=== PATIENT | female | born 1975 | race Caucasian/White ===

== ENCOUNTER 2016-11-14 20:12 | Emergency (ER) | payer OTHER ==
[~2016-11-14] VITALS: Ht 157.5 cm; Wt 71.9 kg
[2016-11-14 20:18] VITALS: TEMP 36.5; Ht 157.5 cm; Wt 71.9 kg
[2016-11-14] MEDS ORDERED: SODIUM CHLORIDE 0.9% 1000ML 1,000 ML IV ONE (21:06)
[2016-11-14] MEDS ORDERED: SODIUM CHLORIDE 0.9% 1000ML 1,000 ML IV STA (21:06)
[2016-11-14] MEDS ORDERED: OPTIRAY 320 IV PRN (21:15)
--- NOTE | 2016-11-14 21:30 | EMERGENCY ROOM VISIT NOTE ---
History Report prepared by Estephanie: Kimberlee Gerardo Under the Supervision of: Dr. Marquez La M.D. First contact with patient: 20:57 Chief Complaint: OTHER COMPLAINT Stated Complaint: HERNIA OR RIGHT SIDE HARD LUMP DIZZY AND FAINTNESS History of Present Illness The patient is a 41 year old female who presents to the Emergency Room with complaints of a persistent lump in her right groin occurring for the past 4-5 days. About a day or two prior to the onset of the lump, she had slipped and fallen down while she was lifting her bicycle. She has been having normal bowel movements. She reports a mild back pain and a headache. She also complains of dizziness starting today. She was eating at the time of the onset of her dizziness episode. The patient denies any urinary symptoms, or any other complaints. She is currently on her menstrual period and reports it is normal for her. She denies any chance of . She denies any history of abdominal surgeries or hernia. She does not have any medical problems. She does sleep outside in a tent and she does have some bug bites on her legs and a small one on her thigh. Source of History: patient Onset: 4-5 days ago Position: other (right groin) Quality: other (lump) Timing: other (persistent) Associated Symptoms: + back pain, + headache, No urinary symptoms Review of Systems See HPI for pertinent positives & negatives. A total of 10 systems reviewed and were otherwise negative. Past Medical & Surgical Medical Problems: (1) Chronic fatigue (2) Need for post exposure prophylaxis for rabies (3) Need for post exposure prophylaxis for rabies (4) Need for post exposure prophylaxis for rabies (5) Need for post exposure prophylaxis for rabies Surgical Problems: (1) [place] teeth extracted Old medical records were reviewed. Nurse's notes were reviewed and I agree with. Family History Diabetes mellitus Heart disease Hypertension Lung disease Social History Smoking Status: Never Smoker Alcohol Use: none Drug Use: none Marital Status: single Occupation Status: employed Current/Historical Medications No Active Prescriptions or Reported Meds Allergies Coded Allergies: Amoxicillin (Unverified Allergy, Unknown, UNKNOWN, 07/10/15) Sulfamethoxazole w/Trimethoprim (Unverified Allergy, Unknown, UNKNOWN, ) Uncoded Allergies: SULFITES (Allergy, Mild, trigger sleep apnea, 12/16/09) Physical Exam Vital Signs Date Time Temp Pulse Resp B/P Pulse Ox O2 Delivery O2 Flow Rate FiO2 11/15/16 00:09 75 20 127/72 98 11/14/16 22:41 83 20 132/77 98 11/14/16 22:08 101 20 138/67 98 11/14/16 20:18 36.5 106 20 144/69 98 Physical Exam General: Non-ill appearing, middle aged female, in no acute distress. HEENT: Normal cephalic atraumatic. Pupils are equal round and reactive to light. Extraocular movements are intact. Oropharynx is pink with moist mucous membranes. No swelling of the mouth lips or tongue. Neck: Supple with a midline trachea. No meningeal signs or stiffness, no JVD or bruits. No Stridor. Chest: Clear to auscultation bilaterally. No wheezes or rhonchi. No increased work of breathing. Heart: regular rate and rhythm. Abdomen: Soft nontender, nondistended without rebound guarding or rigidity. No splenomegaly or tenderness over the spleen. : Mild lymphadenopathy in right groin, no fluctuance, no hernia. Left groin has no lymphadenopathy. Extremities: No cyanosis clubbing or edema. No calf tenderness or assymetry. Right leg has no cellulitis. She has bug bite on the right thigh that is not red. Spine/Back. Non tender to palpation. No CVA tenderness Skin: Good turgor without rashes. Neurologic exam: Cranial nerves two through 12 are intact. Motor and sensation are intact and symmetrical throughout. Medical Decision & Procedures ER Provider Diagnostic Interpretation: CT results as stated below per my review and radiologist interpretation: ABDOMEN AND PELVIS CT WITH IV CONTRAST CT DOSE: 377.52 mGy.cm HISTORY: Hernia eval for hernia, right inguinal TECHNIQUE: Multiaxial CT images of the abdomen and pelvis were performed following the use of intravenous contrast. COMPARISON STUDY: None. FINDINGS: Lung bases are clear. Liver is uniform throughout. Gallbladder is negative for distention. Spleen is slightly prominent at 12 cm maximum linear dimension. The adrenal glands are normal. Kidneys enhance uniformly. There is no evidence for hydronephrosis. There is bowel pattern within the abdomen and pelvis is nonobstructive. Small bilateral ovarian follicular cysts are present. There is no significant abdominal or pelvic adenopathy. Bladder is midline. There are several right inguinal nodes measuring up to 1.8 cm. There is no evidence for pelvic or inguinal hernia. IMPRESSION: 1. Study is negative for hernia. 2. Several right inguinal nodes the largest of which measures 1.8 cm. If this does not resolve, biopsy would be indicated. 3. Mild splenomegaly. Electronically signed by: Jay Valerio M.D. 11/14/2016 10:44 PM Laboratory Results 11/14/16 21:40 Red Blood Count 4.43, Mean Corpuscular Volume 89.8, Mean Corpuscular Hemoglobin 30.0, Mean Corpuscular Hemoglobin Concent 33.4, Mean Platelet Volume 11.2, Neutrophils (%) (Auto) 66.9, Lymphocytes (%) (Auto) 23.6, Monocytes (%) (Auto) 6.8, Eosinophils (%) (Auto) 2.0, Basophils (%) (Auto) 0.5, Neutrophils # (Auto) 2.95, Lymphocytes # (Auto) 1.04, Monocytes # (Auto) 0.30, Eosinophils # (Auto) 0.09, Basophils # (Auto) 0.02 11/14/16 21:40 Test 11/14/16 21:26 11/14/16 21:40 11/14/16 21:48 Urine Color YELLOW Urine Appearance CLEAR (CLEAR) Urine pH 7.0 (4.5-7.5) Urine Specific [place] 1.017 (1.000-1.030) Urine Protein NEG (NEG) Urine Glucose (UA) NEG (NEG) Urine Ketones NEG (NEG) Urine Occult Blood 1+ (NEG) Urine Nitrite NEG (NEG) Urine Bilirubin NEG (NEG) Urine Urobilinogen NEG (NEG) Urine Leukocyte Esterase NEG (NEG) Urine WBC (Auto) 1-5 /hpf (0-5) Urine RBC (Auto) 5-10 /hpf (0-4) Urine Hyaline Casts (Auto) 0 /lpf (0-5) Urine Epithelial Cells (Auto) 10-20 /lpf (0-5) Urine Bacteria (Auto) NEG (NEG) Urine Test NEG (NEG) White Blood Count 4.41 K/uL (4.8-10.8) Red Blood Count 4.43 M/uL (4.2-5.4) Hemoglobin 13.3 g/dL (12.0-16.0) Hematocrit 39.8 % (37-47) Mean Corpuscular Volume 89.8 fL (80-100) Mean Corpuscular Hemoglobin 30.0 pg (25-34) Mean Corpuscular Hemoglobin Concent 33.4 g/dl (32-36) Platelet Count 200 K/uL (130-400) Mean Platelet Volume 11.2 fL (7.4-10.4) Neutrophils (%) (Auto) 66.9 % Lymphocytes (%) (Auto) 23.6 % Monocytes (%) (Auto) 6.8 % Eosinophils (%) (Auto) 2.0 % Basophils (%) (Auto) 0.5 % Neutrophils # (Auto) 2.95 K/uL (1.4-6.5) Lymphocytes # (Auto) 1.04 K/uL (1.2-3.4) Monocytes # (Auto) 0.30 K/uL (0.11-0.59) Eosinophils # (Auto) 0.09 K/uL (0-0.5) Basophils # (Auto) 0.02 K/uL (0-0.2) RDW Standard Deviation 41.3 fL (36.4-46.3) RDW Coefficient of Variation 12.7 % (11.5-14.5) Immature Granulocyte % (Auto) 0.2 % Immature Granulocyte # (Auto) 0.01 K/uL (0.00-0.02) Anion Gap 9.0 mmol/L (3-11) Est Creatinine Clear Calc Drug Dose 80.1 ml/min Estimated GFR () 98.0 Estimated GFR (Non- 84.5 BUN/Creatinine Ratio 13.5 (10-20) Calcium Level 8.7 mg/dl (8.5-10.1) Total Bilirubin 0.3 mg/dl (0.2-1) Direct Bilirubin mg/dl (0-0.2) Aspartate Amino Transf (AST/SGOT) 27 U/L (15-37) Alanine Aminotransferase (ALT/SGPT) 31 U/L (12-78) Alkaline Phosphatase 89 U/L (45-117) Total Protein 7.5 gm/dl (6.4-8.2) Albumin 3.9 gm/dl (3.4-5.0) Lipase 144 U/L (73-393) Chemistry Specimen Hemolysis Bedside Troponin I 0.000 ng/ml (0-0.045) Laboratory studies as stated above per my review. Medications Administered Medications (Trade) Dose Ordered Sig/Bhupinder Route Start Time Stop Time Status Last Admin Dose Admin Sodium Chloride 1,000 ml @ 999 mls/hr Q1H1M STAT IV 11/14/16 21:06 11/14/16 22:06 DC 11/14/16 22:03 999 MLS/HR Sodium Chloride (Nss 1000ml) 1,000 ml @ 200 mls/hr Q5H ONCE IV 11/14/16 21:06 11/15/16 00:32 DC 11/14/16 22:04 200 MLS/HR ED Course 2056: Past medical records reviewed. The patient was evaluated in room B11A, and a complete history and physical examination were performed. 2105: Sodium Chloride 1000 ml @ 200 mls/hr IV, Sodium Chloride 1000 ml @ 999 mls /hr IV 5: Upon reevaluation, the patient is resting comfortably. I discussed the results and treatment plan with her. She verbalized agreement of the treatment plan. The patient was discharged home. Medical Decision Differential diagnosis includes but is not limited to lymphadenopathy, hernia, infection, malignancy. This patient comes in as described above. She was placed in room B 11. She is here for treatment and evaluation of pain in her right groin with a mass. On exam, she has what appears to be lymphadenopathy but hernia could still be in the differential. It is not red or warm she does have a small bite on her leg but no cellulitis or obvious infection. She's had no systemic complaints. She does not have any lymph nodes in her left groin or her axilla. She has no tenderness over spleen or splenomegaly on exam. Blood work was obtained and was unremarkable. She has no acute electrolyte or metabolic abnormalities. She is not . I did a CAT scan and there is lymphadenopathy no evidence of hernia. Most likely this is reactive. I did talk at length and stressed importance of close follow-up as if this persists she may ultimately need biopsy to rule out malignancy. [facility] and she was given a follow-up within the next week. also I had our case management team got involved and talked to the patient and they will also contact her as well to make sure she does have follow-up. She is encouraged to return to ER fever or chills, worsening symptoms, increasing pain or problems, any new problems or concerns. Impression Primary Impression: Inguinal lymphadenopathy Additional Impression: Right groin pain Scribe Attestation The scribe's documentation has been prepared under my direction and personally reviewed by me in its entirety. I confirm that the note above accurately reflects all work, treatment, procedures, and medical decision making performed by me. Departure Information Dispostion Home / Self-Care Prescriptions No Active Prescriptions or Reported Meds Referrals No Doctor, Assigned (PCP) Forms HOME CARE DOCUMENTATION FORM, IMPORTANT VISIT INFORMATION, WORK / SCHOOL INSTRUCTIONS Patient Instructions A Signature Page, My [facility] Additional Instructions Rest. Drink plenty of fluids. Return if: Increasing pain, redness or warmth, fever or chills, any new problems or concerns. [facility]up with [facility] in 1-2 weeks to get this rechecked. You may ultimately need a biopsy if the symptoms persist or worsen
[2016-11-14 21:55] LABS: BASO % 0.5 %; BASO ABS # 0.02 K/uL (0-0.2); COMPLETE YES; HEMATOCRIT 39.8 % (37-47); IG% 0.2 %; LYMPH % 23.6 %; LYMPH ABS # 1.04 K/uL (1.2-3.4); MEAN CELL VOLUME 89.8 fL (80-100); MEAN CORPUSCULAR HGB CONC 33.4 g/dl (32-36); MEAN PLATELET VOLUME 11.2 fL (7.4-10.4); MONO % 6.8 %; NEUT % 66.9 %; PLATELET COUNT 200 K/uL (130-400); RED BLOOD COUNT 4.43 M/uL (4.2-5.4); WHITE BLOOD COUNT 4.41 K/uL (4.8-10.8)
[2016-11-14 22:15] LABS: URINE APPEARANCE CLEAR (CLEAR); URINE BILIRUBIN NEG (NEG); URINE COLOR YELLOW; URINE NITRITE NEG (NEG); URINE SPECIFIC GRAVITY 1.017 (1.000-1.030); UROBILINOGEN NEG (NEG)
[2016-11-14 22:19] LABS: BLOOD UREA NITROGEN 12 mg/dl (7-18); CREATININE 0.85 mg/dl (0.60-1.20); GLUCOSE 85 mg/dl (70-99)
[2016-11-14 22:20] LABS: ALKALINE PHOSPHATASE 89 U/L (45-117); ALT/SGPT 31 U/L (12-78); AST/SGOT 27 U/L (15-37); BUN/CREATININE RATIO 13.5 (10-20); CALCIUM 8.7 mg/dl (8.5-10.1); CARBON DIOXIDE 25 mmol/L (21-32); CHLORIDE 109 mmol/L (98-107); SODIUM 143 mmol/L (136-145)
[2016-11-14 22:24] LABS: MANUAL MICROSCOPIC REQUIRED? NO; REVIEW REQ? NO
--- NOTE | 2016-11-14 22:46 | DIAGNOSTIC IMAGING REPORT ---
ABDOMEN AND PELVIS CT WITH IV CONTRAST CT DOSE: 377.52 mGy.cm HISTORY: Hernia eval for hernia, right inguinal TECHNIQUE: Multiaxial CT images of the abdomen and pelvis were performed following the use of intravenous contrast. COMPARISON STUDY: None. FINDINGS: Lung bases are clear. Liver is uniform throughout. Gallbladder is negative for distention. Spleen is slightly prominent at 12 cm maximum linear dimension. The adrenal glands are normal. Kidneys enhance uniformly. There is no evidence for hydronephrosis. There is bowel pattern within the abdomen and pelvis is nonobstructive. Small bilateral ovarian follicular cysts are present. There is no significant abdominal or pelvic adenopathy. Bladder is midline. There are several right inguinal nodes measuring up to 1.8 cm. There is no evidence for pelvic or inguinal hernia. IMPRESSION: 1. Study is negative for hernia. 2. Several right inguinal nodes the largest of which measures 1.8 cm. If this does not resolve, biopsy would be indicated. 3. Mild splenomegaly. Electronically signed by: Jay Valerio M.D. 11/14/2016 10:44 PM
[2016-11-15 00:09] VITALS: BP 127/72; PULSE 75; O2SAT 98
== END 2016-11-15 00:10 | disposition home or self-care (01) ==
LOC: C.EDB 20:14
DX: R59.0 Localized enlarged lymph nodes (principal); R10.31 Right lower quadrant pain